=== PATIENT | male | born 1965 | race Caucasian/White ===

== ENCOUNTER 2018-04-10 17:59 | Emergency (ER) | payer OTHER ==
[~2018-04-10] VITALS: Ht 167.6 cm; Wt 104.3 kg
[2018-04-10] MEDS ORDERED: AVAPRO150 MG PO (18:15)
[2018-04-10] MEDS ORDERED: SYNTHROID50 MCG PO (18:15)
== END 2018-04-10 20:29 | disposition home or self-care (01) ==
LOC: ER 17:59
DX: S83.8X1A Sprain of other specified parts of right knee, initial encounter (principal); X50.3XXA Overexertion from repetitive movements, initial encounter; Y93.89 Activity, other specified; Y92.89 Other specified places as the place of occurrence of the external cause; Y99.8 Other external cause status